=== PATIENT | male | born 1955 | race Caucasian/White ===

== ENCOUNTER 2021-09-12 21:00 | Emergency (ER) | payer SELFPAY ==
[2021-09-12] MEDS ORDERED: Sodium Chloride 0.9% 10 ML Syringe FLUSH PRN (21:31)
--- NOTE | 2021-09-12 21:39 | EDM.PDOC ---
ED HPI GENERAL MEDICAL PROBLEM - General Chief Complaint: Neuro Symptoms/Deficits Stated Complaint: DIZZINESS, DIFFICULTY SWALLOWING Time Seen by Provider: 09/12/21 21:15 Source of Information: Reports: Patient, RN. Denies: Old Records History Limitations: Reports: Other (no old records) - History of Present Illness INITIAL COMMENTS - FREE TEXT/NARRATIVE: 66 yo male presents with complaints of inability to swallow and dizziness with falling to the right since about 9 pm last night. He was told in the past that his BP was "a little high". He does not have a doctor and does not take any medications. He does drink alcohol regularly and drank heavily earlier in the weekend. He only smokes a "little weed". He is here with a friend who assisted him otherwise he would have fallen. Onset: Sudden Onset Date: 09/11/21 Duration: Day(s): (1), Constant Location: Reports: Head, Face (slight R lateral upper cheek numbness), Neck Quality: Reports: Other (no pain) Severity: Moderate Improves with: Reports: None Worsens with: Reports: None (not sure if it has worsened since onset, possibly?) Context: Reports: Other (See HPI) Associated Symptoms: Reports: No Other Symptoms. Denies: Confusion, Chest Pain, Diaphoresis, Fever/Chills, Nausea/Vomiting, Syncope, Weakness Treatments BEEKEEPER: Reports: Other (see below) (none) - Related Data Allergies Allergy/AdvReac Type Severity Reaction Status Date / Time Penicillins Allergy Airway Verified 10/04/18 02:23 Tightness Home Meds: Home Meds NK [No Known Home Meds] 10/04/18 [History] Social & Family History - Family History Family Medical History: No Pertinent Family History - Caffeine Use Caffeine Use: Reports: Coffee, Soda ED ROS GENERAL - Review of Systems Review Of Systems: See Below Constitutional: Reports: No Symptoms HEENT: Reports: No Symptoms Respiratory: Reports: No Symptoms Cardiovascular: Reports: No Symptoms GI/Abdominal: Reports: No Symptoms : Reports: No Symptoms Musculoskeletal: Reports: No Symptoms Skin: Reports: No Symptoms Neurological: Reports: Dizziness (with falling to the right), Paresthesia (R upper/outer cheek), Difficulty Walking (falls to the right), Gait Disturbance (falls to the right), Other (can't swallow x 24 hrs). Denies: Confusion, Headache, Pre-Existing Deficit, Seizure, Syncope, Weakness, Change in Speech Psychiatric: Reports: No Symptoms ED EXAM, NEURO - Physical Exam Exam: See Below Exam Limited By: No Limitations General Appearance: Alert, WD/WN, No Apparent Distress Eye Exam: Bilateral Eye: EOMI, Normal Inspection, PERRL Ears: Normal External Exam, Normal Canal, Hearing Grossly Normal, Normal TMs Nose: Normal Inspection, No Blood Throat/Mouth: Normal Inspection, Normal Lips, Normal Oropharynx, Normal Voice, No Airway Compromise Head Exam: Atraumatic, Normocephalic Neck: Normal Inspection Respiratory/Chest: No Respiratory Distress, Lungs Clear, Normal Breath Sounds, No Accessory Muscle Use Cardiovascular: Regular Rate, Rhythm, No Edema GI/Abdominal: Soft, Non-Tender Neurological: Alert, Normal Mood/Affect, CN II-XII Intact, Oriented x 3, Other (unable to swallow, no observed gag reflex, falls to the right when he gets up to walk. ). No: No Motor/Sensory Deficits Back Exam: Normal Inspection Extremities: Normal Inspection, Normal Range of Motion, Non-Tender, No Pedal Edema Psychiatric: Normal Affect, Normal Mood Skin Exam: Warm, Dry, Intact, Normal Color, No Rash Course - Vital Signs Text/Narrative:: Accepted by Dr. Adame, [facility] neurology @ 2245h - Orders/Labs/Meds Orders: Active Orders 24 hr Category Date Time Status Head wo Cont [CT] Stat Exams 09/12/21 21:32 Taken CORONAVIRUS COVID-19 VERONICA [MOLEC] Stat Lab 09/12/21 22:45 Received UA W/MICROSCOPIC [URIN] Stat Lab 09/12/21 21:31 Ordered Sodium Chloride 0.9% [Normal Saline] 1,000 ml Med 09/12/21 22:45 Active IV ASDIRECTED Sodium Chloride 0.9% [Saline Flush] Med 09/12/21 21:31 Active 10 ml FLUSH ASDIRECTED PRN Saline Lock Insert [OM.PC] Routine Oth 09/12/21 21:31 Ordered Medication Orders Sodium Chloride (Normal Saline) 1,000 mls @ 150 mls/hr IV ASDIRECTED ADAM Last Admin: 09/12/21 22:49 Dose: 150 mls/hr Documented by: WIESCHE Sodium Chloride (Sodium Chloride 0.9% 10 Ml Syringe) 10 ml FLUSH ASDIRECTED PRN PRN Reason: Keep Vein Open Last Admin: 09/12/21 22:50 Dose: 10 ml Documented by: VERITO Labs: Laboratory Tests 09/12/21 09/12/21 09/12/21 Range/Units 22:00 22:00 22:00 WBC 11.6 H (3.2-10.1) x10-3/uL RBC 6.34 H (3.90-5.90) x10(6)uL Hgb 18.2 H (12.9-17.7) g/dL Hct 54.7 H (38.3-50.1) % MCV 86.3 (80.8-98.7) fL MCH 28.8 (27.0-33.3) pg MCHC 33.4 (28.7-35.3) g/dL RDW 13.2 (12.4-15.0) % Plt Count 231 (117-477) x10(3)uL PT (9.0-11.1) sec INR (1.00-1.24) APTT (24.4-33.2) SECONDS Sodium 139 (135-145) mmol/L Potassium 4.5 (3.5-5.3) mmol/L Chloride 102 (100-110) mmol/L Carbon Dioxide 28 (21-32) mmol/L BUN 17 (7-18) mg/dL Creatinine 1.5 H (0.70-1.30) mg/dL Est Cr Clr Drug Dosing TNP Estimated GFR (MDRD) 47 L (>60) BUN/Creatinine Ratio 11.3 (9-20) Glucose 139 H (80-116) mg/dL Calcium 9.6 (8.6-10.2) mg/dL Total Bilirubin 1.1 (0.1-1.3) mg/dL AST 24 (5-25) IU/L ALT 29 (12-36) U/L Alkaline Phosphatase 63 (56-112) IU/L Troponin I 39.1 (4.0-60.3) pg/mL Total Protein 8.2 H (6.0-8.0) g/dL Albumin 3.9 (3.2-4.6) g/dL Globulin 4.3 g/dL Albumin/Globulin Ratio 0.9 09/12/21 09/12/21 Range/Units 22:00 22:00 WBC (3.2-10.1) x10-3/uL RBC (3.90-5.90) x10(6)uL Hgb (12.9-17.7) g/dL Hct (38.3-50.1) % MCV (80.8-98.7) fL MCH (27.0-33.3) pg MCHC (28.7-35.3) g/dL RDW (12.4-15.0) % Plt Count (117-477) x10(3)uL PT 11.6 H (9.0-11.1) sec INR 1.08 (1.00-1.24) APTT 24.2 L (24.4-33.2) SECONDS Sodium (135-145) mmol/L Potassium (3.5-5.3) mmol/L Chloride (100-110) mmol/L Carbon Dioxide (21-32) mmol/L BUN (7-18) mg/dL Creatinine (0.70-1.30) mg/dL Est Cr Clr Drug Dosing Estimated GFR (MDRD) (>60) BUN/Creatinine Ratio (9-20) Glucose (80-116) mg/dL Calcium (8.6-10.2) mg/dL Total Bilirubin (0.1-1.3) mg/dL AST (5-25) IU/L ALT (12-36) U/L Alkaline Phosphatase (56-112) IU/L Troponin I (4.0-60.3) pg/mL Total Protein (6.0-8.0) g/dL Albumin (3.2-4.6) g/dL Globulin g/dL Albumin/Globulin Ratio Meds: Medications Generic Name Dose Route Start Last Admin Trade Name Freq PRN Reason Stop Dose Admin Sodium Chloride 1,000 mls @ 150 mls/hr 09/12/21 22:45 09/12/21 22:49 Normal Saline IV 150 mls/hr ASDIRECTED ADAM Administration Sodium Chloride 10 ml 09/12/21 21:31 09/12/21 22:50 Sodium Chloride 0.9% 10 Ml Syringe FLUSH 10 ml ASDIRECTED PRN Administration Keep Vein Open - Radiology Interpretation Free Text/Narrative:: Head CT scan without contrast-suspected small infarcts L basilar ganglia of indeterminate age. CT Results Date: 09/12/21 - Re-Assessments/Exams Free Text/Narrative Re-Assessment/Exam: 09/12/21 22:43 Unable to swallow pudding here without choking. Departure - Departure Time of Disposition: 23:45 Disposition: DC/Tfer to Acute Hospital 02 Condition: Poor Clinical Impression: Polycythemia CVA (cerebral vascular accident) Qualifiers: CVA mechanism: unspecified Qualified Code(s): I63.9 - Cerebral infarction, unspecified HTN (hypertension) Qualifiers: Hypertension type: unspecified Qualified Code(s): I10 - Essential (primary) hypertension - Discharge Information *PRESCRIPTION DRUG MONITORING PROGRAM REVIEWED*: Not Applicable *COPY OF PRESCRIPTION DRUG MONITORING REPORT IN PATIENT XAVI: Not Applicable Referrals: PCP,Unknown [Ordering Only Provider] - Forms: ED Department Discharge - My Orders Last 24 Hours: My Active Orders 09/12/21 21:31 UA W/MICROSCOPIC [URIN] Stat Sodium Chloride 0.9% [Saline Flush] 10 ml FLUSH ASDIRECTED PRN Saline Lock Insert [OM.PC] Routine 09/12/21 21:32 Head wo Cont [CT] Stat 09/12/21 22:45 CORONAVIRUS COVID-19 VERONICA [MOLEC] Stat Sodium Chloride 0.9% [Normal Saline] 1,000 ml IV ASDIRECTED - Assessment/Plan Last 24 Hours: My Active Orders 09/12/21 21:31 UA W/MICROSCOPIC [URIN] Stat Sodium Chloride 0.9% [Saline Flush] 10 ml FLUSH ASDIRECTED PRN Saline Lock Insert [OM.PC] Routine 09/12/21 21:32 Head wo Cont [CT] Stat 09/12/21 22:45 CORONAVIRUS COVID-19 VERONICA [MOLEC] Stat Sodium Chloride 0.9% [Normal Saline] 1,000 ml IV ASDIRECTED
[2021-09-12] MEDS ORDERED: Sodium Chloride 0.9% 1,000 ML IV SCH (22:45)
[2021-09-12] MEDS ORDERED: cloNIDine 0.1 MG/Day Transdermal Patch TRDERM SCH (23:30)
== END 2021-09-12 23:55 ==
LOC: FB.ED 21:00
DX: I63.9 Cerebral infarction, unspecified (principal); I10 Essential (primary) hypertension; D75.1 Secondary polycythemia; Z88.0 Allergy status to penicillin
CPT/HCPCS: 36415; 70450; 80053; 84484; 85027; 85610; 85730; 87635; 99285; A9270; J7030; U0002